=== PATIENT | male | born 1990 | race Hispanic/Latino ===

== ENCOUNTER 2017-12-25 19:25 | Emergency (ER) | payer OTHER ==
[2017-12-25 19:40] VITALS: BP 114/75; PULSE 67; RESP 18; TEMP 98.7; O2SAT 99
--- NOTE | 2017-12-25 19:54 | ED PDOC ---
HPI: Back Time Seen by Provider: 12/25/17 19:41 Chief Complaint (Nursing): Back Pain Chief Complaint (Provider): pain to tailbone History Per: Patient History/Exam Limitations: no limitations Onset/Duration Of Symptoms: Days (x 1) Current Symptoms Are (Timing): Still Present Additional Complaint(s): 27 year old male presents to the ED complaining of tailbone pain s/p fall while snowboarding at 11:15 am. Patient states initially he felt fine after fall and went right back to snowboarding but throughout the day pain became worse. Patient took 4 acetaminophen tabs earlier in the day and 3 Advil liquid gels just prior to arrival. Patient denies head injury or loss of consciousness. He is ambulatory into ED. PMD: none Past Medical History Reviewed: Historical Data, Nursing Documentation, Vital Signs Vital Signs: Last Vital Signs Temp 98.7 F 12/25/17 19:30 Pulse 67 12/25/17 19:30 Resp 18 12/25/17 19:30 BP 114/75 12/25/17 19:30 Pulse Ox 99 12/25/17 19:30 - Medical History PMH: No Chronic Diseases - Surgical History Surgical History: Appendectomy - Family History Family History: States: No Known Family Hx - Living Arrangements Living Arrangements: With Friends/Others - Social History Current smoker - smoking cessation education provided: No Alcohol: Social Drugs: Denies - Home Medications Home Medications: Ambulatory Orders Medication Instructions Recorded Cyclobenzaprine [Cyclobenzaprine 10 mg PO TID PRN #20 tab 12/25/17 HCl] Naproxen [Naprosyn] 500 mg PO BID #20 tab 12/25/17 traMADol [Ultram] 50 mg PO TID PRN #15 tab 12/25/17 - Allergies Allergies/Adverse Reactions: Allergies Allergy/AdvReac Type Severity Reaction Status Date / Time No Known Allergies Allergy Verified 12/25/17 19:30 Review of Systems ROS Statement: Except As Marked, All Systems Reviewed And Found Negative Musculoskeletal: Positive for: Back Pain (tailbone injury) Neurological: Positive for: Other (no head injury or LOC) Physical Exam - Reviewed Nursing Documentation Reviewed: Yes Vital Signs Reviewed: Yes - Physical Exam Appears: Positive for: Well, Non-toxic, No Acute Distress Head Exam: Positive for: ATRAUMATIC, NORMAL INSPECTION, NORMOCEPHALIC Skin: Positive for: Normal Color. Negative for: Rash Neck: Positive for: Normal, Painless ROM. Negative for: Pain On Movement Of Neck Back: Positive for: Vertebral Tenderness (point tenderness at coccygeal region with no ecchymosis or palpable bony deformity). Negative for: L CVA Tenderness , R CVA Tenderness Extremity: Positive for: Normal ROM Neurologic/Psych: Positive for: Alert, Oriented - ECG O2 Sat by Pulse Oximetry: 99 (RA) Pulse Ox Interpretation: Normal - Other Rad sacrum/coccyx x-ray X-Ray: Interpreted by Me, Viewed By Me X-Ray Interpretation: suspect non-displaced fracture to coccyx Medical Decision Making Medical Decision Making: Time: 19:51 Impression: 27 year old male with tailbone pain Initial Plan: --Flexeril 10 mg PO --Tramadol 50 mg PO --Sacrum and Coccyx x-ray Patient aware of x-ray results. All questions answered. Patient feels better after medications were given. Prescriptions provided for Naprosyn, Flexeril and tramadol. Patient was advised to ice and rest the affected area and was referred to orthopedist on-call for follow-up. Scribe Attestation: ~ ~ Documented by Helena Molina, acting as a scribe for Meme Claros PA-C Provider Scribe Attestation: All medical record entries made by the Scribe were at my direction and personally dictated by me. I have reviewed the chart and agree that the record accurately reflects my personal performance of the history, physical exam, medical decision making, and the department course for this patient. I have also personally directed, reviewed, and agree with the discharge instructions and disposition. Disposition - Clinical Impression Clinical Impression: Coccygeal fracture - Patient ED Disposition Is Patient to be Admitted: No Counseled Patient/Family Regarding: Studies Performed, Diagnosis, Need For Followup, Rx Given - Disposition Referrals: Fabian Jules MD [Medical Doctor] - Disposition: Routine/Home Disposition Time: 20:40 Condition: STABLE Additional Instructions: Ice and rest the affected area, avoid heavy lifting. Take prescription meds as directed as needed for pain. Follow-up with primary doctor or orthopedist. Prescriptions: Cyclobenzaprine [Cyclobenzaprine HCl] 10 mg PO TID PRN #20 tab PRN Reason: Muscle Spasm Naproxen [Naprosyn] 500 mg PO BID #20 tab traMADol [Ultram] 50 mg PO TID PRN #15 tab PRN Reason: Pain, Moderate (4-7) Instructions: Coccyx Fracture (DC), Coccyx Injury Forms: [facility] (Polish)
--- NOTE | 2017-12-26 10:15 | RAD ---
HISTORY: trauma COMPARISON: No prior FINDINGS: BONES: Normal. No fracture. JOINTS: Normal. No osteoarthritis. SOFT TISSUE: Normal. OTHER FINDINGS: None . IMPRESSION: Normal Bone Xray.
== END 2017-12-25 20:57 | disposition home or self-care (01) ==
LOC: H.ER 19:25
DX: S32.2XXA Fracture of coccyx, initial encounter for closed fracture (principal); W19.XXXA Unspecified fall, initial encounter; Y93.23 Activity, snow (alpine) (downhill) skiing, snowboarding, sledding, tobogganing and snow tubing